=== PATIENT | male | born 1985 | race Caucasian/White ===

== ENCOUNTER 2020-08-14 11:56 | Emergency (ER) | payer SELFPAY ==
[~2020-08-14] VITALS: Ht 180.3 cm; Wt 90.0 kg
[2020-08-14 11:58] VITALS: BP 129/86
[2020-08-14] MEDS ORDERED: HYDROCODONE/ACETAMINOPHEN 5/325MG TABLET PO STA (12:10)
[2020-08-14] MEDS ORDERED: MAGNESIUM CITRATE 300ML SOLUTION PO ONE (12:15)
[2020-08-14 12:26] LABS: BASOPHILS % 0.4 % (0.0-2.0); HEMATOCRIT. 45.6 % (42.0-52.0); HEMOGLOBIN. 15.6 g/dL (14.0-18.0); LYMPHOCYTES % 17.4 % (20.0-50.0); MEAN CORPUSCULAR HEMOGLOBIN 30.7 pg (28.0-32.0); MEAN CORPUSCULAR VOLUME 89.8 fL (80.0-94.0); MEAN PLATELET VOLUME 8.3 fl (7.4-10.4); MONOCYTES % 5.8 % (2.0-8.0); NEUTROPHILS % 75.4 % (40.0-76.0); PLATELET 251 x1000/uL (130-400); RED BLOOD CELL COUNT 5.08 mill/uL (4.7-6.1); RED CELL DISTRIBUTION WIDTH 12.4 % (11.6-14.6)
[2020-08-14] MEDS ORDERED: IBUPROFEN 600MG TABLET PO ONE (12:30)
[2020-08-14 12:35] LABS: CHLORIDE 107 mEq/L (98-107); INR 1.1; PROTHROMBIN TIME 11.9 sec (9.6-11.0)
[2020-08-14 12:53] LABS: CLARITY URINE CLOUDY (CLEAR); COLOR URINE YELLOW (YELLOW); KETONES URINE TRACE (NEGATIVE); LEUKOCYTE ESTERASE URINE NEGATIVE (NEGATIVE); NITRITE URINE NEGATIVE (NEGATIVE); OCCULT BLOOD URINE NEGATIVE (NEGATIVE); PH URINE 6.5 (4.5-8.0); PROTEIN URINE NEGATIVE (NEGATIVE); SPECIFIC GRAVITY URINE 1.031 (1.005-1.030)
[2020-08-14] MEDS ORDERED: IOHEXOL-300 100 ML BOTTLE ONE (13:31)
[2020-08-14] MEDS ORDERED: SULF1TAB48 MT (15:02)
== END 2020-08-14 15:21 | disposition home or self-care (01) ==
LOC: ER 12:14
DX: K52.9 Noninfective gastroenteritis and colitis, unspecified (principal); Z98.890 Other specified postprocedural states; Z79.899 Other long term (current) drug therapy
CPT/HCPCS: 36415; 73502; 74177; 80053; 81003; 83690; 85025; 85610; 93005; 99285; Q9967